=== PATIENT | female | born 1945 ===

== ENCOUNTER 2017-06-25 14:36 | Inpatient (IN) | payer MEDICAID, OTHER ==
--- NOTE | 2017-06-25 15:07 | ED PDOC ---
HPI: Psych/Substance Abuse Time Seen by Provider: 06/25/17 14:50 Chief Complaint (Nursing): Psychiatric Evaluation Chief Complaint (Provider): Depressed History Per: Patient History/Exam Limitations: no limitations Onset/Duration Of Symptoms: Days (yesterday) Current Symptoms Are (Timing): Still Present Additional Complaint(s): Pt. with depression and thoughts of hurting self. Did not do anything to hurt self. Did not take any meds or drugs. No abd pain, dysuria, weakness, headaches, dizziness. No fever. No back pain. Seen at [facility] for same and dx with uti and given meds. Past Medical History Reviewed: Nursing Documentation, Vital Signs Vital Signs: Last Vital Signs Temp 97.0 F L 06/25/17 14:38 Pulse 104 H 06/25/17 14:38 Resp 26 H 06/25/17 14:38 BP 128/71 06/25/17 14:38 Pulse Ox 99 06/25/17 14:38 - Medical History PMH: Depression, HTN - Surgical History Surgical History: No Surg Hx - Family History Family History: States: Unknown Family Hx - Living Arrangements Living Arrangements: With Family - Social History Current smoker - smoking cessation education provided: No Alcohol: None Drugs: Denies - Allergies Allergies/Adverse Reactions: Allergies Allergy/AdvReac Type Severity Reaction Status Date / Time No Known Allergies Allergy Verified 06/25/17 14:38 Review of Systems ROS Statement: Except As Marked, All Systems Reviewed And Found Negative Psych: Positive for: Depression, Suicidal ideation Physical Exam - Reviewed Nursing Documentation Reviewed: Yes Vital Signs Reviewed: Yes - Physical Exam Appears: Positive for: Non-toxic, No Acute Distress Head Exam: Positive for: ATRAUMATIC, NORMAL INSPECTION, NORMOCEPHALIC Skin: Positive for: Normal Color, Warm, DRY Eye Exam: Positive for: EOMI, Normal appearance, PERRL ENT: Positive for: Normal ENT Inspection Neck: Positive for: Normal, Painless ROM Cardiovascular/Chest: Positive for: Regular Rate, Rhythm Respiratory: Positive for: CNT, Normal Breath Sounds Gastrointestinal/Abdominal: Positive for: Normal Exam, Bowel Sounds, Soft. Negative for: Tenderness Back: Positive for: Normal Inspection. Negative for: L CVA Tenderness, R CVA Tenderness Extremity: Positive for: Normal ROM. 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 Negative for: Motor/Sensory Deficits - Laboratory Results Result Diagrams: 06/25/17 17:54 06/25/17 17:54 Interpretation Of Abn Labs: 5.5 k - ECG O2 Sat by Pulse Oximetry: 99 Pulse Ox Interpretation: Normal - Radiology X-Ray: Read By Radiologist X-Ray Interpretation: No Acute Disease - Progress ED Course And Treament: 1654: Crisis seeing pt. Wants labs for possible admit. 1856: Dr. Carolina to fu on psych, urine, uds, alcohol, ekg. Disposition - Clinical Impression Clinical Impression: Hyperkalemia, Depressed - Patient ED Disposition Is Patient to be Admitted: Transfer of Care - Disposition Disposition Time: 18:56 Condition: FAIR Patient Signed Over To: Elias Carolina
--- NOTE | 2017-06-25 17:25 | RAD ---
HISTORY: dyspnea COMPARISON: No prior. FINDINGS: LUNGS: No active pulmonary disease. PLEURA: No significant pleural effusion identified, no pneumothorax apparent. CARDIOVASCULAR: Heart size normal. Central pulmonary vasculature borderline increased. Overall interstitial lung markings also borderline increased. Chronicity of these findings not known. OSSEOUS STRUCTURES: Thoracic spondylosis. VISUALIZED UPPER ABDOMEN: Normal. OTHER FINDINGS: None. IMPRESSION: No consolidation. Borderline prominent bronchovascular and interstitial lung markings as detailed above-of unknown chronicity. Normal heart size
[2017-06-25 17:57] LABS: BASO # 0.1 K/uL (0.0-0.2); EOS # 0.1 K/uL (0.0-0.7); EOS % 1.4 % (0.0-4.0); HEMOGLOBIN 15.8 g/dL (12.0-16.0); LYMPH # 2.3 K/uL (1.0-4.3); MEAN CORPUSCULAR HEMOGLOBIN 32.8 pg (27.0-31.0); MEAN CORPUSCULAR HGB CONC 33.8 g/dL (33.0-37.0); MEAN PLATELET VOLUME 7.7 fl (7.2-11.7); MONO # 0.8 K/uL (0.0-0.8); MONO % 10.9 % (0.0-10.0); NEUT # 3.8 K/uL (1.8-7.0); NEUT % 54.7 % (50.0-75.0); RBC 4.81 Mil/uL (3.80-5.20); RED CELL DISTRIBUTION WIDTH 13.2 % (11.5-14.5)
[2017-06-25 18:21] LABS: ALBUMIN 4.3 g/dL (3.5-5.0); ALT/SGPT 53 U/L (9-52); AST/SGOT 53 U/L (14-36); BLOOD UREA NITROGEN 24 mg/dl (7-17); CALCIUM 10.1 mg/dL (8.4-10.2); GFR AFRICAN-AMERICAN > 60; GFR NON-AFRICAN AMERICAN 55
[2017-06-25] MEDS ORDERED: Sod Polystyrene Sulf 15 gm/60 ml Susp PO STA (18:54)
[2017-06-25] MEDS ORDERED: Albuterol 0.083% Inhal Sol (2.5 mg/3 mL) UD INH STA (18:54)
--- NOTE | 2017-06-25 19:23 | ED PDOC ---
- Laboratory Results Result Diagrams: 06/25/17 17:54 06/25/17 17:54 - ECG O2 Sat by Pulse Oximetry: 99 (RA) Pulse Ox Interpretation: Normal Medical Decision Making Medical Decision Making: Time: 19:00 Patient signed out to me by Dr. Medina pending labs and evaluation. Time: 22:15 Labs reviewed and urine found significant for persistent UTI. Patient is medically stable for psychiatric admission. Urine result communicated to crisis workers who will inform psychiatrist. Time: 01:30 Crisis reevaluated and patient is stable for voluntary admission. Diagnosed with depression. Scribe Attestation: Documented by Bret Desai and Alcon Sanchez, acting as a scribe for Elias Carolina MD. Provider Scribe Attestation: All medical record entries made by the Scribe were at my direction and personally dictated by me. I have reviewed the chart and agree that the record accurately reflects my personal performance of the history, physical exam, medical decision making, and the department course for this patient. I have also personally directed, reviewed, and agree with the discharge instructions and disposition. Disposition - Clinical Impression Clinical Impression: Hyperkalemia, Depressed - POA Present On Arrival: None - Disposition Disposition: Admitted as In-Patient Disposition Time: 22:15 Condition: FAIR
[2017-06-25 22:04] LABS: BARBITURATES, UR NEGATIVE (NEGATIVE); BENZODIAZEPINES, UR NEGATIVE (NEGATIVE); OPIATES, UR NEGATIVE (NEGATIVE); PHENCYCLIDINE, UR NEGATIVE (NEGATIVE)
[2017-06-25] MEDS ORDERED: Bismuth Subsalicylate 262 mg/15 ml Sus (240 ml) PO PRN (23:46)
[2017-06-25] MEDS ORDERED: Alum-Mag Hydrox-Simethicone Susp (30 mL) PO PRN (23:46)
[2017-06-25] MEDS ORDERED: Magnesium Hydroxide Susp 30 ml UD PO PRN (23:46)
--- NOTE | 2017-06-25 23:53 | PCM.BM ---
<Felicitas Rolon - Last Filed: 06/25/17 23:51> Treatment Plan Problems - Problems identified on initial assessmt Hopelessness/Helplessness Date Initiated: 06/25/17 Time Initiated: 23:51 Assessment reference: NA Status: Active Treatment assets and liabiliti Patient Assests: cooperative, good support system, negotiates basic needs Patient Liabilities: relationship conflicts - Milieu Protocol Maintain good personal hygiene: daily Encourage regular showers, daily Remind patient to perform daily oral care, every shift Assist patient to perform ADL's Conduct patient checks and document Observation sheet: Q15 minutes Maintain personal safety: every shift Educate patient to report safety concerns to staff, every shift Monitor environment for contraband/sharps Medication safety: Monitor for expected outcome, potential side effects: every shift, Assess barriers to learning: every shift, Assess readiness for medication education: every shift <Awilda Rodriguez - Last Filed: 06/26/17 13:22> - Diagnosis (1) Dementia with behavioral disturbance Status: Acute Interventions: Medication management, Individual and group therapy, Psychoeducation 06/26/17 12:26 (2) Depressive disorder Status: Acute Interventions: Medication management, Individual and group therapy, Psychoeducation 06/26/17 13:22 <Ophelia Pyle M - Last Filed: 06/26/17 15:07> Family Contact Family contact: Patient agrees to contact, Telephone contact initiated by staff , Family contacted unit to give information Family contact name: Jennifer - daughter Family contacted how many times per week?: 2 Family contact comment: Please see progress note dates 06/26/2017 from - Goals for Treatment Patient goals for treatment: Pt to be encouraged to attend activity and clinical groups 3-5x per week to identify at least 2 contributing factors to increased agitation, irritability, and aggression. Psycho-education to be provided to patient/family regarding benefits of medications and treatment adherence. Pt to be encouraged to participate in group milieu to develop effective coping skills to reduce aggression and reduce psychiatric hospitalizations. Coordinate discharge resource needs by providing referral for psychiatric treatment follow up in the community. Discharge/Continuing Care - Education Needs Education Needs: Family Medication, Family Diagnosis/Disease Process, Family Coping Skills, Family Placement options, Family Community resources, Family Activities of Daily Living, Family Uses of Medical Equipment, Family Health Practices/Safety, Family Personal Hygiene/Grooming, Family Aftercare Safety Plan , Patient Medication, Patient Diagnosis/Disease Process, Patient Coping Skills, Patient Placement options, Patient Community resources, Patient Activities of Daily Living, Patient Uses of Medical Equipment, Patient Health Practices/Safety , Patient Personal Hygiene/Grooming, Patient Aftercare Safety Plan - Discharge Discharge Criteria: Tolerates medication w/o severe side effects, Free of paranoid thoughts, Free of agitation, Normal sleep pattern, Ability to care for self, Reduction of target symptoms Discharge to:: Home, With Family - Additional Comments 06/26/17 15:04 Pt seen and discussed in team meeting. Reason for hospitalization reviewed and discussed. Pt unable to state reason for hospitalization at this time. Pt recalls having a "mental breakdown" but cannot state why or what caused it. Pt' s memory is poor and disoriented. When asked when she last visited [facility] pt cannot recall. Pt is a poor historian. Pt's medical and social issues reviewed. Pt's treatment plan reviewed. Treatment deo also reviewed with daughter following morning meeting with pt. SW will continue to follow case. - Treatment Team Participation Discussed with Family/SO: Yes Was Patient/Family/SO present at Treatment Team Meeting: Yes
[2017-06-26 02:00] VITALS: O2SAT 99
[2017-06-26 07:51] LABS: ALBUMIN 3.6 g/dL (3.5-5.0); ALT/SGPT 44 U/L (9-52); AST/SGOT 29 U/L (14-36); BLOOD UREA NITROGEN 22 mg/dl (7-17); CALCIUM 9.1 mg/dL (8.4-10.2); GFR AFRICAN-AMERICAN > 60; GFR NON-AFRICAN AMERICAN 55; HDL CHOLESTEROL 31 MG/DL (30-70)
[2017-06-26 07:55] LABS: IRON 72 ug/dL (37-170)
[2017-06-26 08:02] LABS: LDL CHOLESTEROL 93 mg/dL (0-129)
[2017-06-26 08:06] LABS: % IRON SATURATION 31 % (20-55); TOTAL IRON BINDING CAPACITY 237 ug/dL (250-450)
[2017-06-26 08:12] LABS: T4 10.4 ug/dl (5.5-11.0)
[2017-06-26] MEDS ORDERED: Pneumococcal 23-Valent Vaccine IM ONE (09:00)
[2017-06-26] MEDS ORDERED: Influenza Vaccine 18yr & older 0.5 ML/45 MCG SYR IM ONE (09:00)
[2017-06-26 11:52] LABS: RENAL EPITHELIAL 2 /hpf (0-3); SQUAMOUS EPITHIAL 7 /hpf (0-5); URINE BILIRUBIN NEGATIVE (NEGATIVE); URINE BLOOD SMALL (NEGATIVE); URINE CLARITY CLOUDY (Clear); URINE COLOR YELLOW (YELLOW); URINE GLUCOSE (UA) NEG (Normal); URINE LEUKOCYTE ESTERASE LARGE Leu/uL (Negative); URINE PROTEIN NEGATIVE (NEGATIVE); URINE UROBILINOGEN 0.2-1.0 mg/dL (0.2-1.0); WBC CLUMPS OCC /hpf
--- NOTE | 2017-06-26 12:18 | CP.PCM.CON ---
History of Present Illness - History of Present Illness History of Present Illness: This is a 71 year old female with past medical history of depression and hypertension for which she takes Cozaar and HCTZ at home, who presnted to the ED complaining of worsening depression and thoughts of hurting herself. She was subsequently admitted to the psychiatric unit. She currently has no complaints. Of note she was recently seen at [facility] for depression and there was found to have a UTI and was discharged with cephalexin. We will repeat U/A here and continue her antibiotics. Patient denies chest pain, shortness of breath, fevers, chills, nausea, vomiting, diarrhea, headache. All of the patient 's questions were answered at the bedside. Review of Systems - Review of Systems Review of Systems: A 12 point ROS was conducted and found to be negative other than what was mentioned in the HPI. Past Patient History - Infectious Disease Hx of Infectious Diseases: None - Past Social History Alcohol: None Drugs: Denies - CARDIAC Hx Cardiac Disorders: No - PULMONARY Hx Tuberculosis: No - NEUROLOGICAL HX Cerebrovascular Accident: No Hx Seizures: No - HEMATOLOGICAL/ONCOLOGICAL Hx Cancer: No Hx Human Immunodeficiency Virus (HIV): No - MUSCULOSKELETAL/RHEUMATOLOGICAL Hx Falls: No - GENITOURINARY/GYNECOLOGICAL Hx Sexually Transmitted Disorders: No - PSYCHIATRIC Hx Depression: Yes Hx Substance Use: No Meds Allergies/Adverse Reactions: Allergies Allergy/AdvReac Type Severity Reaction Status Date / Time No Known Allergies Allergy Verified 06/25/17 14:38 - Medications Medications: Current Medications Acetaminophen (Tylenol 325mg Tab) 650 mg PO Q4 PRN PRN Reason: Pain, moderate (4-7) Al Hydrox/Mg Hydrox/Simethicone (Maalox Plus 30 Ml) 30 ml PO Q4 PRN PRN Reason: Dyspepsia Bismuth Subsalicylate (Pepto-Bismol) 524 mg PO Q4 PRN PRN Reason: Diarrhea Cephalexin Monohydrate (Keflex) 500 mg PO QID CARL PRN Reason: Protocol Lorazepam (Ativan) 0.5 mg PO HS PRN PRN Reason: Insomnia Stop: 07/09/17 23:47 Lorazepam (Ativan) 0.5 mg PO Q6 PRN PRN Reason: Anixety/Agitation Stop: 07/09/17 23:47 Losartan Potassium (Cozaar) 50 mg PO BID [facility] Last Admin: 03/09/18 08:58 Dose: Not Given Magnesium Hydroxide (Milk Of Magnesia) 30 ml PO HS PRN PRN Reason: Constipation Mirtazapine (Remeron) 7.5 mg PO HS [facility] Last Admin: 06/26/17 01:39 Dose: 7.5 mg Physical Exam - Additional Findings Additional findings: Physical exam: Constitutional- cooperative, awake, alert Head- NCAT, PERRL Eye- PERRL, EOMI. mild right ptosis ENT- normal exam, MMM. Neck- normal inspection, supple, no JVD Respiratory- CTAB, no wheezes rales rhonchi Cardiovascular- RRR, +S1, +S2 no MRG GI/Abdominal- normal bowel sounds, soft, no mass, no hsm Skin- warm, dry Extremities Exam- normal capillary refill, normal inspection Neurological Exam- alert, awake, oriented Psych- normal mood, normal affect Results - Vital Signs Recent Vital Signs: Last Vital Signs Temp 97.3 F L 06/26/17 06:00 Pulse 73 06/26/17 08:58 Resp 20 06/26/17 06:00 BP 111/60 06/26/17 08:58 Pulse Ox 99 06/26/17 02:22 - Labs Result Diagrams: 06/25/17 17:54 06/26/17 07:24 Labs: Laboratory Results - last 24 hr 06/25/17 06/25/17 06/25/17 17:54 17:54 21:32 WBC 7.0 RBC 4.81 Hgb 15.8 Hct 46.6 MCV 97.0 MCH 32.8 H MCHC 33.8 RDW 13.2 Plt Count 245 MPV 7.7 Neut % (Auto) 54.7 Lymph % (Auto) 32.0 Rawlins % (Auto) 10.9 H Eos % (Auto) 1.4 Baso % (Auto) 1.0 Neut # (Auto) 3.8 Lymph # (Auto) 2.3 Rawlins # (Auto) 0.8 Eos # (Auto) 0.1 Baso # (Auto) 0.1 Sodium 147 Potassium 5.5 H Chloride 103 Carbon Dioxide 26 Anion Gap 24 H BUN 24 H Creatinine 1.0 Est GFR ( Amer) > 60 Est GFR (Non-Af Amer) 55 Random Glucose 111 H Hemoglobin A1c Calcium 10.1 Iron TIBC % Saturation Ferritin Total Bilirubin 0.9 AST 53 H ALT 53 H Alkaline Phosphatase 114 Troponin I 0.0210 Total Protein 8.4 H Albumin 4.3 Globulin 4.1 H Albumin/Globulin Ratio 1.0 Triglycerides Cholesterol LDL Cholesterol Direct HDL Cholesterol Vitamin B12 Free T4 Thyroxine (T4) TSH 3rd Generation Urine Color Urine Clarity Urine pH Ur Specific Corona Urine Protein Urine Glucose (UA) Urine Ketones Urine Blood Urine Nitrate Urine Bilirubin Urine Urobilinogen Ur Leukocyte Esterase Urine RBC (Auto) Urine WBC Clumps (Auto) Urine Microscopic WBC Ur Squamous Epith Cells Ur Renal Epithelial Cell Urine Opiates Screen Negative Urine Methadone Screen Negative Ur Barbiturates Screen Negative Ur Phencyclidine Scrn Negative Ur Amphetamines Screen Negative U Benzodiazepines Scrn Negative U Oth Cocaine Metabols Negative U Cannabinoids Screen Negative Alcohol, Quantitative < 10 06/26/17 06/26/17 06/26/17 07:24 07:24 07:24 WBC RBC Hgb Hct MCV MCH MCHC RDW Plt Count MPV Neut % (Auto) Lymph % (Auto) Rawlins % (Auto) Eos % (Auto) Baso % (Auto) Neut # (Auto) Lymph # (Auto) Rawlins # (Auto) Eos # (Auto) Baso # (Auto) Sodium 144 Potassium 3.6 Chloride 104 Carbon Dioxide 28 Anion Gap 16 BUN 22 H Creatinine 1.0 Est GFR ( Amer) > 60 Est GFR (Non-Af Amer) 55 Random Glucose 101 Hemoglobin A1c 6.5 Calcium 9.1 Iron 72 TIBC 237 L % Saturation 31 Ferritin 261.0 Total Bilirubin 0.9 AST 29 ALT 44 Alkaline Phosphatase 93 Troponin I Total Protein 7.2 Albumin 3.6 Globulin 3.6 Albumin/Globulin Ratio 1.0 Triglycerides 112 Cholesterol 155 LDL Cholesterol Direct 93 HDL Cholesterol 31 Vitamin B12 862 Free T4 Thyroxine (T4) 10.4 TSH 3rd Generation 1.30 Urine Color Urine Clarity Urine pH Ur Specific Corona Urine Protein Urine Glucose (UA) Urine Ketones Urine Blood Urine Nitrate Urine Bilirubin Urine Urobilinogen Ur Leukocyte Esterase Urine RBC (Auto) Urine WBC Clumps (Auto) Urine Microscopic WBC Ur Squamous Epith Cells Ur Renal Epithelial Cell Urine Opiates Screen Urine Methadone Screen Ur Barbiturates Screen Ur Phencyclidine Scrn Ur Amphetamines Screen U Benzodiazepines Scrn U Oth Cocaine Metabols U Cannabinoids Screen Alcohol, Quantitative 06/26/17 06/26/17 07:24 10:40 WBC RBC Hgb Hct MCV MCH MCHC RDW Plt Count MPV Neut % (Auto) Lymph % (Auto) Rawlins % (Auto) Eos % (Auto) Baso % (Auto) Neut # (Auto) Lymph # (Auto) Rawlins # (Auto) Eos # (Auto) Baso # (Auto) Sodium Potassium Chloride Carbon Dioxide Anion Gap BUN Creatinine Est GFR ( Amer) Est GFR (Non-Af Amer) Random Glucose Hemoglobin A1c Calcium Iron TIBC % Saturation Ferritin Total Bilirubin AST ALT Alkaline Phosphatase Troponin I Total Protein Albumin Globulin Albumin/Globulin Ratio Triglycerides Cholesterol LDL Cholesterol Direct HDL Cholesterol Vitamin B12 Free T4 2.04 Thyroxine (T4) TSH 3rd Generation Urine Color Yellow Urine Clarity Cloudy Urine pH 5.0 Ur Specific Corona 1.024 Urine Protein Negative Urine Glucose (UA) Neg Urine Ketones Negative Urine Blood Small Urine Nitrate Negative Urine Bilirubin Negative Urine Urobilinogen 0.2-1.0 Ur Leukocyte Esterase Large Urine RBC (Auto) 6 H Urine WBC Clumps (Auto) Occ H Urine Microscopic WBC 106 H Ur Squamous Epith Cells 7 H Ur Renal Epithelial Cell 2 Urine Opiates Screen Urine Methadone Screen Ur Barbiturates Screen Ur Phencyclidine Scrn Ur Amphetamines Screen U Benzodiazepines Scrn U Oth Cocaine Metabols U Cannabinoids Screen Alcohol, Quantitative Assessment & Plan - Assessment and Plan (Free Text) Plan: ASSESSMENT/PLAN 71 yo female admitted with depression and suicidal ideation to the inpatient geropsychiatric unit 1) UTI found at [facility] - Continue Keflex regimen - Obtain urinalysis and UCX if positive - no c/o dysuria at this time 2) Hyperkalemia- resolved; likely due to her HCTZ - Was given Kayexelate and Albuterol in ED - K now 3.6 3) Essential hypertension - Controlled - restart Cozaar - Hold HCTZ as she is normotensive here and this likely caused her hyperkalemia 4) Depression with suicidal ideation - As per psychiatry
[2017-06-26 12:55] LABS: FOLATE 10.5 ng/mL
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
--- NOTE | 2017-06-26 13:22 | CARD ---
APPROVED REPORT EKG Measurement Heart [id number] <Conclusion> Normal sinus rhythm Normal ECG
--- NOTE | 2017-06-26 16:34 | CT ---
PROCEDURE: CT HEAD WITHOUT CONTRAST. HISTORY: New onset memory loss COMPARISON: No prior study available for comparison TECHNIQUE: Axial computed tomography images were obtained through the head/brain without intravenous contrast. Radiation dose: Total exam DLP = 813.1 mGy-cm. This CT exam was performed using one or more of the following dose reduction techniques: Automated exposure control, adjustment of the mA and/or kV according to patient size, and/or use of iterative reconstruction technique. FINDINGS: HEMORRHAGE: No acute parenchymal, subarachnoid or extra-axial hemorrhage. . BRAIN: Minor slightly diffuse/confluent chronic periventricular white matter ischemic changes are felt to be present. Few small ill-defined areas of low attenuation seen within the deep and subcortical white matter both cerebral hemispheres likely representing chronic sequela of small vessel disease. There also appears to be a few tiny chronic appearing lacunar type infarcts both basal nuclei. Note that the possibility of a small hyperacute infarct cannot be excluded on this study and if there is any concern, consider follow-up MRI. Mild generalized volume loss. Minor vascular calcifications both carotid siphons. VENTRICLES: No obstructive hydrocephalus. CALVARIUM: There are no acute calvarial fractures PARANASAL SINUSES: Visualized paranasal sinuses are clear. MASTOID AIR CELLS: Unremarkable as visualized. No inflammatory changes. OTHER FINDINGS: Visualized orbits and contents unremarkable. IMPRESSION: No evidence of acute intracranial hemorrhage. Minor slightly diffuse/confluent chronic periventricular white matter ischemic changes. There are a few chronic appearing ischemic changes scattered about the deep white matter in both basal nuclei. . Mild generalized Volume loss.
[2017-06-26] MEDS: Divalproex 125 mg Sprinkle Capsule PO SCH (17:00)
[2017-06-26 17:03] LABS: RAPID PLASMA REAGIN REACTIVE (NONREACTIVE)
--- NOTE | 2017-06-27 07:16 | PCM.PYCHPN ---
Psychiatric Progress Note - Psychiatric Progress Note Patient seen today, length of contact: Patient evaluated, case discussed with team, chart reviewed Patient Chief Complaint: "I'm feeling guilty." Problems Identified/Issues Discussed: Patient has been crying and is labile. She did not want to discuss why she was crying, stating "I can't talk about it." This morning she states she does not know where she is or why she is in the hospital. She seems to have poor insight into her mood lability. Medication Change: No Medical Record Reviewed: Yes Consults ordered or reviewed: Medicine consult Mental Status Examination - Cognitive Function Orientation: Person Memory: Impaired Attention: Poor Concentration: Poor Fund of Knowledge: Poor - Mood Mood: Depressed - Affect Affect: Constricted - Formal Thought Process Formal Thought Process: Loosening of associations Psychotic Thoughts and Behaviors: Denies AH/VH/paranoia/delusions - Suicidal Ideation Suicidal Ideation: No - Homicidal Ideation Homicidal Ideation: No Goal/Treatment Plan - Goal/Treatment Plan Need for Continued Stay: Remain at risks for inpatient hospitalization, Severe depression anxiety, Severe functional impairment Progress Toward Problem(s) and Goals/Treatment Plan: Dementia w/ Behavior Disturbance; Depressive Disorder NOS -Individual and group therapy -Continue Depakote 125 mg PO BID -Continue Remeron 7.5 mg PO HS -Continue Aricept 5 mg PO HS -Medicine consult; patient currently being treated for a UTI -Obtain collateral history -Disposition planning Estimated Date of D/C: 07/03/17
[2017-06-27] MEDS: Divalproex 125 mg Sprinkle Capsule PO SCH ×2 (08:48→16:34)
[2017-06-28] MEDS: Divalproex 125 mg Sprinkle Capsule PO SCH ×2 (09:14→17:28)
--- NOTE | 2017-06-28 11:25 | PCM.PYCHPN ---
Psychiatric Progress Note - Psychiatric Progress Note Patient seen today, length of contact: Patient evaluated, case discussed with team, chart reviewed Patient Chief Complaint: "I'm feeling guilty." Problems Identified/Issues Discussed: Patient continues to be labile, depressed, crying spontanously, but is unable to state what is making her upset. A + O x self, [facility], 2018. She seems to have poor insight into her mood lability. No adverse effects to medications reported. Medication Change: Yes (Increase Depakote to 125 mg PO AM/ 250 mg PO Daily@1700) Medical Record Reviewed: Yes Consults ordered or reviewed: Medicine consult Mental Status Examination - Cognitive Function Orientation: Person, Place Memory: Impaired Attention: Poor Concentration: Poor Fund of Knowledge: Poor Decription of patient's judgement and insights: Poor I/J - Mood Mood: Depressed - Affect Affect: Constricted - Formal Thought Process Formal Thought Process: Loosening of associations Psychotic Thoughts and Behaviors: Denies AH/VH/paranoia/delusions - Suicidal Ideation Suicidal Ideation: No - Homicidal Ideation Homicidal Ideation: No Goal/Treatment Plan - Goal/Treatment Plan Need for Continued Stay: Remain at risks for inpatient hospitalization, Severe depression anxiety, Severe functional impairment Progress Toward Problem(s) and Goals/Treatment Plan: Dementia w/ Behavior Disturbance; Depressive Disorder NOS -Individual and group therapy -Increase Depakote to 125 mg PO AM/ 250 mg PO Daily@1700 -Continue Remeron 7.5 mg PO HS -Continue Aricept 5 mg PO HS -Medicine consult; patient currently being treated for a UTI -Obtain collateral history -Disposition planning Estimated Date of D/C: 07/03/17
[2017-06-29] MEDS: Divalproex 125 mg Sprinkle Capsule PO SCH (08:15)
--- NOTE | 2017-06-29 08:45 | PCM.PYCHPN ---
Psychiatric Progress Note - Psychiatric Progress Note Patient seen today, length of contact: Patient evaluated, case discussed with team, chart reviewed Patient Chief Complaint: "I'm sad." Problems Identified/Issues Discussed: Patient continues to be labile, depressed, tearful, and crying spontanously. She does not give a specific reason why she is crying or why she feels depressed. She continues to have poor insight into her mood lability. NO AH/ VH/SI/HI. No adverse effects to medications reported. Medication Change: Yes (Increase Depakote to 250 mg PO BID; Increase Remeron to 15 mg PO HS) Medical Record Reviewed: Yes Consults ordered or reviewed: Medicine consult Mental Status Examination - Cognitive Function Orientation: Person, Place Memory: Impaired Attention: Poor Concentration: Poor Fund of Knowledge: Poor Decription of patient's judgement and insights: Poor I/J - Mood Mood: Depressed - Affect Affect: Constricted - Formal Thought Process Formal Thought Process: Loosening of associations Psychotic Thoughts and Behaviors: Denies AH/VH/paranoia/delusions - Suicidal Ideation Suicidal Ideation: No - Homicidal Ideation Homicidal Ideation: No Goal/Treatment Plan - Goal/Treatment Plan Need for Continued Stay: Remain at risks for inpatient hospitalization, Severe depression anxiety, Severe functional impairment Progress Toward Problem(s) and Goals/Treatment Plan: Dementia w/ Behavior Disturbance; Depressive Disorder NOS -Individual and group therapy -Increase Depakote to 250 mg PO BID -Increase Remeron to 15 mg PO HS -Continue Aricept 5 mg PO HS -Medicine consult; patient currently being treated for a UTI -Disposition planning Estimated Date of D/C: 07/03/17
[2017-06-29] MEDS ORDERED: Divalproex 250 mg DR(BID formulation) PO SCH (17:00)
--- NOTE | 2017-06-30 10:00 | PCM.PYCHPN ---
Psychiatric Progress Note - Psychiatric Progress Note Patient seen today, length of contact: Patient evaluated, case discussed with team, chart reviewed Patient Chief Complaint: "I'm sad." Problems Identified/Issues Discussed: Manufacturing Process Technician spoke with patient's daughters, who believe the patient is delusional due to her stating various things that are not true. At this time it is unclear if she is acutely psychotic vs. worsening dementia/ neurocognitive impairment. We discussed stopped the Depakote and starting treatment with Risperdal. Patient continues to be labile, tearful and not clearly stating what is making her upset. She is difficult to engage in interview because just cries instead of answering questions. She continues to have poor insight into her mood lability. NO AH/VH/SI/HI. No adverse effects to medications reported. Medication Change: Yes (Stop depakote, Start Risperdal) Medical Record Reviewed: Yes Consults ordered or reviewed: Medicine consult Mental Status Examination - Cognitive Function Orientation: Person, Place Memory: Impaired Attention: Poor Concentration: Poor Fund of Knowledge: Poor Decription of patient's judgement and insights: Poor I/J - Mood Mood: Depressed - Affect Affect: Constricted - Formal Thought Process Formal Thought Process: Loosening of associations Psychotic Thoughts and Behaviors: Denies AH/VH/paranoia/delusions - Suicidal Ideation Suicidal Ideation: No - Homicidal Ideation Homicidal Ideation: No Goal/Treatment Plan - Goal/Treatment Plan Need for Continued Stay: Remain at risks for inpatient hospitalization, Severe depression anxiety, Severe functional impairment Progress Toward Problem(s) and Goals/Treatment Plan: Dementia w/ Behavior Disturbance; Depressive Disorder NOS; r/o Psychosis NOS -Individual and group therapy -Stop Depakote; start Risperdal -Continue Remeron 15 mg PO HS -Continue Aricept 5 mg PO HS -Medicine consult; patient treated for a UTI -Psychology consult to evaluate neurocognitive function -Disposition planning Estimated Date of D/C: 07/03/17
[2017-06-30 15:23] LABS: SQUAMOUS EPITHIAL 2 /hpf (0-5); URINE BACTERIA OCC (<OCC); URINE BILIRUBIN NEGATIVE (NEGATIVE); URINE BLOOD NEGATIVE (NEGATIVE); URINE CLARITY SLIGHTY-CLOUDY (Clear); URINE COLOR YELLOW (YELLOW); URINE GLUCOSE (UA) 50 mg/dL (Normal); URINE LEUKOCYTE ESTERASE LARGE Leu/uL (Negative); URINE PROTEIN NEGATIVE (NEGATIVE); URINE UROBILINOGEN 0.2-1.0 mg/dL (0.2-1.0)
--- NOTE | 2017-07-01 17:02 | PCM.PYCHPN ---
Psychiatric Progress Note - Psychiatric Progress Note Patient seen today, length of contact: Patient evaluated, case discussed with team, chart reviewed Patient Chief Complaint: seen seated in social area seated when spoken to speaks wallisian cries inappropriately, staff report pt is labile at times, but is redirectal pt's urine culture +gram pos evelio, pt is being followed by hospitalist received antibiotics Problems Identified/Issues Discussed: alteration in cognition alteration in self care Medical Problems: uti gram neg rods [id number] rods pt being followed by hospitalist Diagnostic Results: per psychiatry per medicine per nursing per social work case manager per recreational therapy Medication Change: No Medical Record Reviewed: Yes Consults ordered or reviewed: pt being followed by hospitalist lab tests reviewed including urine c/s Mental Status Examination - Cognitive Function Orientation: Person, Place Memory: Impaired Attention: Poor Concentration: Poor Fund of Knowledge: Poor Decription of patient's judgement and insights: impaired - Mood Mood: Depressed - Affect Affect: Constricted - Speech Speech: Soft Additional comments: tearful at times - Formal Thought Process Formal Thought Process: Paranoia, Loosening of associations - Suicidal Ideation Suicidal Ideation: No - Homicidal Ideation Homicidal Ideation: No Goal/Treatment Plan - Goal/Treatment Plan Need for Continued Stay: Remain at risks for inpatient hospitalization, Severe depression anxiety, Severe functional impairment Progress Toward Problem(s) and Goals/Treatment Plan: inpt milieu clinical visualization/vital signs per clinical status and per protocol adjust meds per status Increase risperdal to 1mg po hs-falls precautions staff to notify hospitalist preliminary report gram neg rods between 50 000 to 100 000 wallisian spoken prn discharge planning in progress Estimated Date of D/C: 07/03/17 - Smoking Cessation Smoking Cessation Initiated: No Reason for not providing: pt defers
--- NOTE | 2017-07-02 15:57 | PCM.PYCHPN ---
Psychiatric Progress Note - Psychiatric Progress Note Patient seen today, length of contact: Patient evaluated, case discussed with team, chart reviewed Patient Chief Complaint: staff report pt is calmer, less tearful, seen more visibly in unit-taking per plan. pt reports doing better slept better Problems Identified/Issues Discussed: alteration in cognition alteration in self care Medical Problems: uti gram neg rods [id number] rods pt being followed by hospitalist jailene has been started Diagnostic Results: per psychiatry per medicine per nursing per healthcare social worker per recreational therapy DSM 5 Symptoms Update: alteration in cognition Medication Change: No Medical Record Reviewed: Yes Consults ordered or reviewed: pt being followed by hospitalist Mental Status Examination - Cognitive Function Orientation: Person, Place Memory: Impaired Attention: Poor Concentration: Poor Fund of Knowledge: Poor Decription of patient's judgement and insights: impaired - Mood Mood: Depressed - Affect Affect: Constricted - Speech Speech: Soft - Formal Thought Process Formal Thought Process: Paranoia, Loosening of associations - Suicidal Ideation Suicidal Ideation: No - Homicidal Ideation Homicidal Ideation: No Goal/Treatment Plan - Goal/Treatment Plan Need for Continued Stay: Remain at risks for inpatient hospitalization, Severe depression anxiety, Severe functional impairment Progress Toward Problem(s) and Goals/Treatment Plan: inpt milieu clinical visualization/vital signs per clinical status and per protocol adjust meds per status Increase risperdal to 1mg po hs-falls precautions pt has been started by jailene by hospitalistspanish spoken prn prn access to hebrew speaking staff discharge planning in progress Estimated Date of D/C: 07/03/17 - Smoking Cessation Smoking Cessation Initiated: No Reason for not providing: pt defers
--- NOTE | 2017-07-03 10:53 | CP.PCM.CON ---
History of Present Illness - History of Present Illness History of Present Illness: Pt is a 71 year old female admitted to the geropsych unit and referred to the medical technical writer for evaluation. On the DRS, pt scored an overall score of 104. Pt scored in the Deficient Range on Construction, Conceptualization, Initation and Memory tasks. Pt scored within normal limits on Attention tasks. Overall 104 Attention 33 Construction 3 Conceptualization 29 Initiation 24 Memory 15 Assistance reccomended for the home. Deficits evident on testing. Past Patient History - Infectious Disease Hx of Infectious Diseases: None - Past Social History Alcohol: None Drugs: Denies - CARDIAC Hx Cardiac Disorders: No - PULMONARY Hx Tuberculosis: No - NEUROLOGICAL HX Cerebrovascular Accident: No Hx Seizures: No - HEMATOLOGICAL/ONCOLOGICAL Hx Cancer: No Hx Human Immunodeficiency Virus (HIV): No - MUSCULOSKELETAL/RHEUMATOLOGICAL Hx Falls: No - GENITOURINARY/GYNECOLOGICAL Hx Sexually Transmitted Disorders: No - PSYCHIATRIC Hx Depression: Yes Hx Substance Use: No Meds Allergies/Adverse Reactions: Allergies Allergy/AdvReac Type Severity Reaction Status Date / Time No Known Allergies Allergy Verified 06/25/17 14:38 - Medications Medications: Current Medications Acetaminophen (Tylenol 325mg Tab) 650 mg PO Q4 PRN PRN Reason: Pain, moderate (4-7) Al Hydrox/Mg Hydrox/Simethicone (Maalox Plus 30 Ml) 30 ml PO Q4 PRN PRN Reason: Dyspepsia Bismuth Subsalicylate (Pepto-Bismol) 524 mg PO Q4 PRN PRN Reason: Diarrhea Ciprofloxacin (Cipro) 500 mg PO Q12 [facility] PRN Reason: Protocol Last Admin: 07/03/17 08:27 Dose: 500 mg Donepezil HCl (Aricept) 5 mg PO HS [facility] Last Admin: 07/02/17 21:01 Dose: 5 mg Lorazepam (Ativan) 0.5 mg PO HS PRN PRN Reason: Insomnia Stop: 07/09/17 23:47 Last Admin: 07/02/17 23:36 Dose: 0.5 mg Lorazepam (Ativan) 0.5 mg PO Q6 PRN PRN Reason: Anixety/Agitation Stop: 07/09/17 23:47 Last Admin: 07/03/17 08:17 Dose: 0.5 mg Losartan Potassium (Cozaar) 50 mg PO BID [facility] Last Admin: 07/03/17 08:28 Dose: 50 mg Magnesium Hydroxide (Milk Of Magnesia) 30 ml PO HS PRN PRN Reason: Constipation Mirtazapine (Remeron) 15 mg PO HS [facility] Last Admin: 07/02/17 21:01 Dose: 15 mg Risperidone (Risperdal Tab) 0.5 mg PO Q12 [facility] Last Admin: 07/03/17 08:28 Dose: 0.5 mg Results - Vital Signs Recent Vital Signs: Last Vital Signs Temp 96.8 F L 07/03/17 05:51 Pulse 69 07/03/17 08:28 Resp 19 07/03/17 05:51 BP 116/69 07/03/17 08:28 Pulse Ox 99 06/26/17 02:22 - Labs Result Diagrams: 06/25/17 17:54 06/26/17 07:24
--- NOTE | 2017-07-03 15:55 | CP.PCM.CON ---
History of Present Illness - History of Present Illness History of Present Illness: Infectious Disease Consultation Note- asked to see this patient at the request of the hospitalist for + RPR HPI- history obtained mostly from the medical chart . Patient is a 71 year old female with depression and HTN who was admitted to [facility] for worsening depression and suicidal ideation. I'm now asked to see the patient because she had positive RPR. of note pt. was also found to have + urine cx and is on abx as per hospitalist for that. currently pt. is smiling and pleasant and seen together with her nurse. she denies any fever or chills, denies any nausea or vomiting, denies any dysurea but states has had UTI in the past, denies any diarrhea. denies any HAMMONDS. asked pt. if she remembers ever having PCN injections snd she denies it. also when asked about syphillis she states she does not know anything about it and never heard this before. She states only has one partner her Review of Systems - Review of Systems Review of Systems: ROS_ denies any fever or chills, denies any HAMMONDS, denies any denies any h/o any STD and does not recall everb getting PCN injection in her past cough or sob, denies any chest pain, denies any abd. pain, denies any dysurea, denies any diarrhea, denies any n/v, denies any recent travel denies any allergy to any meds. Past Patient History - Infectious Disease Hx of Infectious Diseases: None - Past Social History Alcohol: None Drugs: Denies Home Situation {Lives}: With Family - CARDIAC Hx Cardiac Disorders: No - PULMONARY Hx Respiratory Disorders: No - NEUROLOGICAL HX Cerebrovascular Accident: No Hx Seizures: No - RENAL Hx Chronic Kidney Disease: No - ENDOCRINE/METABOLIC Hx Endocrine Disorders: No - HEMATOLOGICAL/ONCOLOGICAL Hx Blood Disorders: No - MUSCULOSKELETAL/RHEUMATOLOGICAL Hx Falls: No - GENITOURINARY/GYNECOLOGICAL Hx Sexually Transmitted Disorders: No - PSYCHIATRIC Hx Depression: Yes Hx Substance Use: No Meds Allergies/Adverse Reactions: Allergies Allergy/AdvReac Type Severity Reaction Status Date / Time No Known Allergies Allergy Verified 06/25/17 14:38 - Medications Medications: Current Medications Acetaminophen (Tylenol 325mg Tab) 650 mg PO Q4 PRN PRN Reason: Pain, moderate (4-7) Al Hydrox/Mg Hydrox/Simethicone (Maalox Plus 30 Ml) 30 ml PO Q4 PRN PRN Reason: Dyspepsia Bismuth Subsalicylate (Pepto-Bismol) 524 mg PO Q4 PRN PRN Reason: Diarrhea Cefdinir (Omnicef) 300 mg PO BID [facility] Donepezil HCl (Aricept) 5 mg PO HS [facility] Last Admin: 07/02/17 21:01 Dose: 5 mg Lorazepam (Ativan) 0.5 mg PO HS PRN PRN Reason: Insomnia Stop: 07/09/17 23:47 Last Admin: 07/02/17 23:36 Dose: 0.5 mg Lorazepam (Ativan) 0.5 mg PO Q6 PRN PRN Reason: Anixety/Agitation Stop: 07/09/17 23:47 Last Admin: 07/03/17 08:17 Dose: 0.5 mg Losartan Potassium (Cozaar) 50 mg PO BID [facility] Last Admin: 07/03/17 08:28 Dose: 50 mg Magnesium Hydroxide (Milk Of Magnesia) 30 ml PO HS PRN PRN Reason: Constipation Mirtazapine (Remeron) 15 mg PO HS [facility] Last Admin: 07/02/17 21:01 Dose: 15 mg Risperidone (Risperdal Tab) 0.5 mg PO Q12 [facility] Last Admin: 07/03/17 08:28 Dose: 0.5 mg Physical Exam - Constitutional Appears: Non-toxic, No Acute Distress - Head Exam Head Exam: ATRAUMATIC - Eye Exam Eye Exam: EOMI, PERRL - ENT Exam ENT Exam: Normal Oropharynx - Neck Exam Neck exam: Positive for: Full Rom - Respiratory Exam Respiratory Exam: Clear to Auscultation Bilateral, NORMAL BREATHING PATTERN - Cardiovascular Exam Cardiovascular Exam: RRR, +S1, +S2 - GI/Abdominal Exam GI & Abdominal Exam: Normal Bowel Sounds, Soft Additional comments: NT, ND - Neurological Exam Neurological exam: Alert, Oriented x3 Results - Vital Signs Recent Vital Signs: Last Vital Signs Temp 98.2 F 07/03/17 15:40 Pulse 97 H 07/03/17 15:40 Resp 20 07/03/17 15:40 BP 109/58 L 07/03/17 15:40 Pulse Ox 99 06/26/17 02:22 - Labs Result Diagrams: 06/25/17 17:54 06/26/17 07:24 Labs: Laboratory Results - last 24 hr 06/26/17 07:24 T.pallidum Ab (FTA-ABS) Reactive Laboratory Results - last 72 hr 06/26/17 07:24 T.pallidum Ab (FTA-ABS) Reactive Microbiology 06/30/17 15:02 Urine,Clean Catch Urine Culture - Final Escherichia Coli 06/27/17 12:40 Urine,Clean Catch Urine Culture - Final No Growth (<1,000 CFU/ML) Assessment & Plan (1) Depressive disorder Status: Acute (2) Positive RPR test Status: Acute - Assessment and Plan (Free Text) Assessment: A/P- 71 year old female with depressive disorder admitted with worsening depression found to have + RPR. 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 in light of the UA and urine cx advise to repeat both UA and urine cx since pt. was on cipro as per med records but the e.coli UTI was Resistant to cipro. Thank you for allowing me to take part in the care of this patient. all above d/w .
[2017-07-03] MEDS ORDERED: Penicillin G Benzathine 2.4 Mill Unit/4 ml Syr IM SCH (16:30)
[2017-07-03] MEDS: Cefdinir 300 MG CAP PO SCH (17:03)
[2017-07-03] MEDS: Penicillin G Benzathine 2.4 Mill Unit/4 ml Syr IM SCH (17:23)
--- NOTE | 2017-07-03 18:06 | PCM.PYCHPN ---
Psychiatric Progress Note - Psychiatric Progress Note Patient seen today, length of contact: Patient evaluated, case discussed with team, chart reviewed Patient Chief Complaint: staff report pt is calmer, less tearful, seen more visibly in unit-taking per plan. pt reports doing better slept better, pt was seen by ander crawford abs/rpr + today Problems Identified/Issues Discussed: alteration in cognition alteration in self care Medical Problems: uti gram neg rods [id number] rods pt being followed by hospitalist jailene has been started Diagnostic Results: per psychiatry per medicine per nursing per high school social studies teacher per recreational therapy DSM 5 Symptoms Update: alteration in mood alteration in cognition Medication Change: No Medical Record Reviewed: Yes Consults ordered or reviewed: pt seen by infectious disease and dr ng today Mental Status Examination - Cognitive Function Orientation: Person, Place Memory: Impaired Attention: WNL Concentration: Poor Association: Loose Fund of Knowledge: Poor Decription of patient's judgement and insights: impaired - Mood Mood: Depressed - Affect Affect: Constricted - Speech Speech: Soft - Formal Thought Process Formal Thought Process: Paranoia, Loosening of associations - Suicidal Ideation Suicidal Ideation: No - Homicidal Ideation Homicidal Ideation: No Goal/Treatment Plan - Goal/Treatment Plan Need for Continued Stay: Remain at risks for inpatient hospitalization, Severe depression anxiety, Severe functional impairment Progress Toward Problem(s) and Goals/Treatment Plan: inpt milieu clinical visualization/vital signs per clinical status and per protocol adjust meds per status Increase risperdal to 1mg po hs-falls precautions pt seen by infectious disease today + fta abs/rpr + to be started on pcn per hospitalist urine culture results evaluated by infectious disease and discussed with hospitalist per notes prn access to irish speaking staff discharge planning in progress Estimated Date of D/C: 07/03/17 - Smoking Cessation Smoking Cessation Initiated: No Reason for not providing: pt defers need
[2017-07-03 18:27] LABS: SQUAMOUS EPITHIAL 4 /hpf (0-5); URINE BACTERIA MANY (<OCC); URINE BILIRUBIN NEGATIVE (NEGATIVE); URINE CLARITY TURBID (Clear); URINE COLOR YELLOW (YELLOW); URINE GLUCOSE (UA) NEG (Normal); URINE HYALINE CAST >20 /hpf (0-2); URINE LEUKOCYTE ESTERASE LARGE Leu/uL (Negative); URINE PROTEIN 30 mg/dL (NEGATIVE); URINE UROBILINOGEN 0.2-1.0 mg/dL (0.2-1.0)
[2017-07-03 18:28] LABS: URINE BLOOD SMALL (NEGATIVE)
[2017-07-04] MEDS: Cefdinir 300 MG CAP PO SCH ×2 (08:09→16:14)
--- NOTE | 2017-07-04 15:21 | PCM.PYCHPN ---
Psychiatric Progress Note - Psychiatric Progress Note Patient seen today, length of contact: Patient evaluated, case discussed with team, chart reviewed Patient Chief Complaint: pt is less anxious and tolerating meds well Pt is less delusional and less paranoid and denies side effects to risperdal. Medication Change: No Medical Record Reviewed: Yes Mental Status Examination - Cognitive Function Orientation: Person, Place Memory: Impaired Attention: WNL Concentration: Poor Association: Loose Fund of Knowledge: Poor - Mood Mood: Depressed - Affect Affect: Constricted - Speech Speech: Soft - Formal Thought Process Formal Thought Process: Paranoia, Loosening of associations - Suicidal Ideation Suicidal Ideation: No - Homicidal Ideation Homicidal Ideation: No Goal/Treatment Plan - Goal/Treatment Plan Need for Continued Stay: Remain at risks for inpatient hospitalization, Severe depression anxiety, Severe functional impairment Progress Toward Problem(s) and Goals/Treatment Plan: will continue to stabilize depression and anxiety and engage pt in therapy. Estimated Date of D/C: 07/03/17
[2017-07-05] MEDS: Cefdinir 300 MG CAP PO SCH ×2 (08:27→17:30)
[2017-07-06] MEDS: Cefdinir 300 MG CAP PO SCH ×2 (08:42→18:41)
--- NOTE | 2017-07-06 20:36 | PCM.PYCHPN ---
Psychiatric Progress Note - Psychiatric Progress Note Patient seen today, length of contact: Patient evaluated, case discussed with team, chart reviewed Patient Chief Complaint: pt seen in milieu talking to peers, reports that things alot about past experiences related to her perception that she could have done more but was not able. then shares related to famil. reports these thoughts are repetitive at times hears unknown voices talking about her. pt was tearful at times. of note pt's son's came to visit pt was able to visit was noted to smile. staff report pt has been adherent with rx.. pt denies side effects with rx.. Problems Identified/Issues Discussed: alteration in cognition alteration in self care Medical Problems: uti gram neg rods [id number] rods pt being followed by hospitalist jailene has been started Diagnostic Results: per psychiatry per medicine per nursing per elementary school social worker per recreational therapy DSM 5 Symptoms Update: alteration in mood and cognition Medication Change: No Medical Record Reviewed: Yes Consults ordered or reviewed: pt being followed hospitalist Mental Status Examination - Cognitive Function Orientation: Person, Place Memory: Impaired Attention: WNL Concentration: Poor Association: Loose Fund of Knowledge: Poor - Mood Mood: Depressed - Affect Affect: Constricted - Speech Speech: Soft - Formal Thought Process Formal Thought Process: Paranoia, Loosening of associations - Homicidal Ideation Homicidal Ideation: No Goal/Treatment Plan - Goal/Treatment Plan Need for Continued Stay: Remain at risks for inpatient hospitalization, Severe depression anxiety, Severe functional impairment Progress Toward Problem(s) and Goals/Treatment Plan: inpt milieu clinical visualization/vital signs per clinical status and per protocol adjust meds per status Increase risperdal to 1mg po hs-falls precautions pt seen by infectious disease today + fta abs/rpr + to be started on pcn per hospitalist urine culture results evaluated by infectious disease and discussed with hospitalist per notes prn access to croatian speaking staff discharge planning in progress Estimated Date of D/C: 07/10/17 - Smoking Cessation Smoking Cessation Initiated: No Reason for not providing: pt defers
[2017-07-07 17:07] LABS: SQUAMOUS EPITHIAL 1 /hpf (0-5); URINE BACTERIA RARE (<OCC); URINE BILIRUBIN NEGATIVE (NEGATIVE); URINE BLOOD NEGATIVE (NEGATIVE); URINE CLARITY SLIGHTY-CLOUDY (Clear); URINE COLOR YELLOW (YELLOW); URINE GLUCOSE (UA) 150 mg/dL (Normal); URINE LEUKOCYTE ESTERASE SMALL Leu/uL (Negative); URINE PROTEIN NEGATIVE (NEGATIVE); URINE UROBILINOGEN 0.2-1.0 mg/dL (0.2-1.0)
--- NOTE | 2017-07-07 17:42 | PCM.PYCHPN ---
Psychiatric Progress Note - Psychiatric Progress Note Patient seen today, length of contact: Patient evaluated, case discussed with team, chart reviewed Patient Chief Complaint: pt seen in room speaking with roommate, smiling talking in nauruan, when spoken to in private reports continues to be worried about being punished for admitted past acts although defers details. reports voices as being commentative. staff report pt is tearful at times. has been adherent with medications. Problems Identified/Issues Discussed: alteration in cognition alteration in self care Medical Problems: uti gram neg rods [id number] rods pt being followed by hospitalist jailene has been started Diagnostic Results: per psychiatry per medicine per nursing per psych social worker per recreational therapy DSM 5 Symptoms Update: alteration in mood alteration in cognition Medication Change: No Medical Record Reviewed: Yes Consults ordered or reviewed: pt being followed by hospitalist Mental Status Examination - Cognitive Function Orientation: Person, Place, Situation Memory: Impaired Attention: WNL Concentration: WNL Association: Loose Fund of Knowledge: Poor Decription of patient's judgement and insights: impaired - Mood Mood: Depressed - Affect Affect: Constricted - Speech Speech: Soft - Formal Thought Process Formal Thought Process: Paranoia, Loosening of associations - Suicidal Ideation Suicidal Ideation: No - Homicidal Ideation Homicidal Ideation: No Goal/Treatment Plan - Goal/Treatment Plan Need for Continued Stay: Remain at risks for inpatient hospitalization, Severe depression anxiety, Severe functional impairment Progress Toward Problem(s) and Goals/Treatment Plan: inpt milieu clinical visualization/vital signs per clinical status and per protocol adjust meds per status Increase risperdal to 1mg po hs-falls precautions pt seen by infectious disease today + fta abs/rpr + to be started on pcn per hospitalist will increase risperdal to 2mg hs, and stop am dose of 0.5mg urine culture results evaluated by infectious disease and discussed with hospitalist per notes prn access to nauruan speaking staff discharge planning in progress Estimated Date of D/C: 07/10/17 - Smoking Cessation Smoking Cessation Initiated: No Reason for not providing: pt deferred
--- NOTE | 2017-07-08 11:13 | PCM.PYCHPN ---
Psychiatric Progress Note - Psychiatric Progress Note Patient seen today, length of contact: Patient evaluated, case discussed with team, chart reviewed Patient Chief Complaint: "I'm sad." Problems Identified/Issues Discussed: Patient continues to be sad and labile. She continues to be fixated on feelings of irrational guilt. She continues to have poor insight into her mood lability. NO AH/VH/SI/HI. No adverse effects to medications reported. Medication Change: Yes (Restart Depakote) Medical Record Reviewed: Yes Consults ordered or reviewed: Medicine consult Mental Status Examination - Cognitive Function Orientation: Person, Place, Situation Memory: Impaired Attention: WNL Concentration: WNL Association: Loose Fund of Knowledge: Poor Decription of patient's judgement and insights: Poor I/J - Mood Mood: Depressed - Affect Affect: Constricted - Speech Speech: Soft - Formal Thought Process Formal Thought Process: Loosening of associations Psychotic Thoughts and Behaviors: Denies AH/VH - Suicidal Ideation Suicidal Ideation: No - Homicidal Ideation Homicidal Ideation: No Goal/Treatment Plan - Goal/Treatment Plan Need for Continued Stay: Remain at risks for inpatient hospitalization, Severe depression anxiety, Severe functional impairment Progress Toward Problem(s) and Goals/Treatment Plan: Dementia w/ Behavior Disturbance; Depressive Disorder NOS; Psychosis NOS -Individual and group therapy -Restart Depakote, continue Risperdal -Continue Remeron 15 mg PO HS -Continue Aricept 5 mg PO HS -Medicine, ID, and Psychology consults -Disposition planning Estimated Date of D/C: 07/13/17
[2017-07-08] MEDS: Divalproex 250 mg DR(BID formulation) PO SCH ×2 (13:20→16:36)
[2017-07-09] MEDS: Divalproex 250 mg DR(BID formulation) PO SCH ×2 (08:18→17:18)
--- NOTE | 2017-07-09 09:56 | PCM.PYCHPN ---
Psychiatric Progress Note - Psychiatric Progress Note Patient seen today, length of contact: Patient evaluated, case discussed with team, chart reviewed Patient Chief Complaint: "I'm sad." Problems Identified/Issues Discussed: Patient continues to be sad and labile w/ feelings of irrational guilt. She whispers at times instead of talking out loud but does not give a reason why. She continues to have poor insight into her mood lability. NO AH/VH/SI/HI. No adverse effects to medications reported. Medication Change: Yes (Titrate Depakote) Medical Record Reviewed: Yes Consults ordered or reviewed: Medicine consult Mental Status Examination - Cognitive Function Orientation: Person, Place, Situation Memory: Impaired Attention: WNL Concentration: WNL Association: Loose Fund of Knowledge: Poor Decription of patient's judgement and insights: Poor I/J - Mood Mood: Depressed - Affect Affect: Constricted - Speech Speech: Soft - Formal Thought Process Formal Thought Process: Loosening of associations Psychotic Thoughts and Behaviors: Denies AH/VH - Suicidal Ideation Suicidal Ideation: No - Homicidal Ideation Homicidal Ideation: No Goal/Treatment Plan - Goal/Treatment Plan Need for Continued Stay: Remain at risks for inpatient hospitalization, Severe depression anxiety, Severe functional impairment Progress Toward Problem(s) and Goals/Treatment Plan: Dementia w/ Behavior Disturbance; Depressive Disorder NOS; Psychosis NOS -Individual and group therapy -Continue to titrate Depakote, continue Risperdal -Continue Remeron 15 mg PO HS -Continue Aricept 5 mg PO HS -Medicine, ID, and Psychology consults -Disposition planning Estimated Date of D/C: 07/13/17
[2017-07-10] MEDS: Divalproex 250 mg DR(BID formulation) PO SCH ×2 (08:31→16:40)
--- NOTE | 2017-07-10 09:24 | PCM.PYCHPN ---
Psychiatric Progress Note - Psychiatric Progress Note Patient seen today, length of contact: Patient evaluated, case discussed with team, chart reviewed Patient Chief Complaint: "I'm sad." Problems Identified/Issues Discussed: Patient continues to be sad, tearful, and labile w/ feelings of irrational guilt. She whispers at times instead of talking out loud but does not give a reason why. She continues to have poor insight into her mood lability. NO AH/ VH/SI/HI. No adverse effects to medications reported. Medication Change: No Medical Record Reviewed: Yes Consults ordered or reviewed: Medicine consult, Psychology consult, ID consult Mental Status Examination - Cognitive Function Orientation: Person, Place, Situation Memory: Impaired Attention: WNL Concentration: WNL Association: Loose Fund of Knowledge: Poor Decription of patient's judgement and insights: Poor I/J - Mood Mood: Depressed - Affect Affect: Constricted - Speech Speech: Soft - Formal Thought Process Formal Thought Process: Loosening of associations Psychotic Thoughts and Behaviors: Denies AH/VH - Suicidal Ideation Suicidal Ideation: No - Homicidal Ideation Homicidal Ideation: No Goal/Treatment Plan - Goal/Treatment Plan Need for Continued Stay: Severe depression anxiety, Severe functional impairment Progress Toward Problem(s) and Goals/Treatment Plan: Dementia w/ Behavior Disturbance; Depressive Disorder NOS; Psychosis NOS -Individual and group therapy -Continue Depakote 250 mg PO BID, will check VPA level 07/12/17 -Continue Remeron 15 mg PO HS -Continue Aricept 5 mg PO HS -Medicine, ID, and Psychology consults -Disposition planning Estimated Date of D/C: 07/13/17
--- NOTE | 2017-07-10 12:40 | PCM.BM ---
Treatment Plan Problems - Problems identified on initial assessmt Hopelessness/Helplessness Date Initiated: 06/25/17 Time Initiated: 23:51 Assessment reference: NA Status: Active Treatment assets and liabiliti Patient Assests: cooperative, good support system, negotiates basic needs Patient Liabilities: relationship conflicts - Milieu Protocol Maintain good personal hygiene: daily Encourage regular showers, daily Remind patient to perform daily oral care, every shift Assist patient to perform ADL's Conduct patient checks and document Observation sheet: Q15 minutes Maintain personal safety: every shift Educate patient to report safety concerns to staff, every shift Monitor environment for contraband/sharps Medication safety: Monitor for expected outcome, potential side effects: every shift, Assess barriers to learning: every shift, Assess readiness for medication education: every shift Milieu Narrative: Dementia w/ Behavior Disturbance; Depressive Disorder NOS; Psychosis NOS -Individual and group therapy -Continue Depakote 250 mg PO BID, will check VPA level 07/12/17 -Continue Remeron 15 mg PO HS -Continue Aricept 5 mg PO HS -Medicine, ID, and Psychology consults -Disposition planning Family Contact Family involvement: Family/SO is involved Family contact: Patient agrees to contact Family contact name: Jennifer- daughter Family contacted how many times per week?: 2 Family contact comment: [phone] - Goals for Treatment Patient goals for treatment: Pt to be encouraged to attend activity and clinical groups 3-5x per week to identify at least 2 contributing factors to increased agitation, irritability, and aggression. Psycho-education to be provided to patient/family regarding benefits of medications and treatment adherence. Pt to be encouraged to participate in group milieu to develop effective coping skills to reduce aggression and reduce psychiatric hospitalizations. Coordinate discharge resource needs by providing referral for psychiatric treatment follow up in the community. Discharge/Continuing Care - Education Needs Education Needs: Family Medication, Family Diagnosis/Disease Process, Family Coping Skills, Family Placement options, Family Community resources, Family Activities of Daily Living, Family Uses of Medical Equipment, Family Health Practices/Safety, Family Personal Hygiene/Grooming, Family Aftercare Safety Plan , Patient Medication, Patient Diagnosis/Disease Process, Patient Coping Skills, Patient Placement options, Patient Community resources, Patient Activities of Daily Living, Patient Uses of Medical Equipment, Patient Health Practices/Safety , Patient Personal Hygiene/Grooming, Patient Aftercare Safety Plan - Discharge Discharge Criteria: Tolerates medication w/o severe side effects, Free of paranoid thoughts, Free of agitation, Normal sleep pattern, Ability to care for self, Reduction of target symptoms Discharge to:: Home, With Family - Additional Comments 06/26/17 15:04 Pt seen and discussed in team meeting. Reason for hospitalization reviewed and discussed. Pt unable to state reason for hospitalization at this time. Pt recalls having a "mental breakdown" but cannot state why or what caused it. Pt' s memory is poor and disoriented. When asked when she last visited [facility] pt cannot recall. Pt is a poor historian. Pt's medical and social issues reviewed. Pt's treatment plan reviewed. Treatment deo also reviewed with daughter following morning meeting with pt. SW will continue to follow case. - Treatment Team Participation Patient/Family/SO Statement: Dementia w/ Behavior Disturbance; Depressive Disorder NOS; Psychosis NOS -Individual and group therapy -Continue Depakote 250 mg PO BID, will check VPA level 07/12/17 -Continue Remeron 15 mg PO HS -Continue Aricept 5 mg PO HS -Medicine, ID, and Psychology consults -Disposition planning Discussed with Family/SO: Yes Was Patient/Family/SO present at Treatment Team Meeting: Yes Treatment Plan Review Family/SO/Caregiver participation: No Additional Comments: Pt seen and discussed in team meeting. Pt's progress and bx on the unit reviewed. Pt reported feeling "sad." When asked to provide further information and describe her feelings pt stated "different reasons." Pt presented with delayed response and with blank stare at times. Pt appeared to have difficulty formulating her sentences and describing what she is currently feeling. Fisher Weir inquired about the thoughts of wanting to hurt her grandchildren and/or anyone else in the house, pt stated "I'm not capable of hurting myself , never mind anyone else." Pt reported "it's just thoughts." Pt unable to provide team with further information regarding her "thoughts." Pt became tearful and reported she does not want to harm anyone. Fisher Weir inquired about her belief that she has HIV. Pt reported she does not recall telling her daughter that she has HIV. Pt reported having memory issues. Pt informed of her most recent dx of Dementia. Pt appeared to be surprised and stated "is it really?" Pt's medications reviewed and discussed. Pt has a tentative discharge for [facility], March 26th. Pt reported having no questions for the team. SW will continue to follow case. - Problem Hopelessness/Helplessness Date Initiated: 06/25/17 Time Initiated: 23:51 Progress toward outcomes: unchanged - Discharge / Continuing Care Discharge to:: Home, With Family Behavioral Health Services: Outpatient therapy, Home health care, Adult day care Health Needs: Follow up care/test, Nutritional, Medications/Rx, Educational
[2017-07-10] MEDS: Penicillin G Benzathine 2.4 Mill Unit/4 ml Syr IM SCH (16:30)
[2017-07-11] MEDS: Divalproex 250 mg DR(BID formulation) PO SCH ×2 (08:45→16:26)
--- NOTE | 2017-07-11 11:53 | PCM.PYCHPN ---
Psychiatric Progress Note - Psychiatric Progress Note Patient seen today, length of contact: Patient evaluated, case discussed with team, chart reviewed Patient Chief Complaint: pt seen in social area interacting with peers, staff report pt has been adherent with medications, appears to be less tearful, remains forgetful at times per staff, has recently been seen during team meeting on unit, discharge is tentatively for this coming thursday if pt continues to be stable. pt is scheduled to be followed up with [facility] as well as [facility]. pt has been followed by ID and has been treated for a UTI as well as syphyllis. per notes reports at times pt reportedly stated has at times being HIV positive although at times pt appears to have denied saying so. Problems Identified/Issues Discussed: alteration in cognition alteration in self care Medical Problems: pt being seen by hospitalist pt being seen by id pt seen by psychology-memory impaired newspaper publisher met with family pt cannot be alone information was provided for family to become poa by newspaper publisher Diagnostic Results: per psychiatry per medicine per nursing per social security assessor per recreational therapy per psychology per infectious disease DSM 5 Symptoms Update: alteration in cognition, alteration in self care, alteration in mood Medication Change: No Medical Record Reviewed: Yes Consults ordered or reviewed: hospitalist, infectious disease, nutrition, psychology Mental Status Examination - Cognitive Function Orientation: Person, Place, Situation Memory: Impaired Attention: WNL Concentration: WNL Association: Loose Fund of Knowledge: Poor Decription of patient's judgement and insights: impaired-cannot live alone at this time and agree with newspaper publisher note related to meeting with pt's family-pt should not be left alone with those who require adult supersion. - Mood Mood: Depressed - Affect Affect: Constricted - Speech Speech: Soft - Formal Thought Process Formal Thought Process: Paranoia, Loosening of associations - Suicidal Ideation Suicidal Ideation: No - Homicidal Ideation Homicidal Ideation: No Goal/Treatment Plan - Goal/Treatment Plan Need for Continued Stay: Severe depression anxiety, Severe functional impairment Progress Toward Problem(s) and Goals/Treatment Plan: inpt milieu clinical visualization/vital signs per clinical status and per protocol given pt has been diagnosed as being syphyllis positive and being treated with IM PCN and pt appears to be a poor historian will order lab for am for hepatitis panel as well as HIV antibody screen at pt is at higher risk given impaired cognitive function-pt will then be able to follow up at [facility] related to results-pt's cognitive status places her at higher risk for issues with follow up prn access to lithuanian speaking staff discharge planning in progress Estimated Date of D/C: 07/13/17 - Smoking Cessation Smoking Cessation Initiated: No Reason for not providing: pt defers
[2017-07-12 06:25] VITALS: RESP 18
[2017-07-12] MEDS: Divalproex 250 mg DR(BID formulation) PO SCH ×2 (08:40→16:22)
[2017-07-12 12:39] LABS: HEPATITIS C ANTIBODY NEGATIVE (NEGATIVE)
[2017-07-12 19:13] LABS: SQUAMOUS EPITHIAL 2 /hpf (0-5); URINE BILIRUBIN NEGATIVE (NEGATIVE); URINE BLOOD NEGATIVE (NEGATIVE); URINE CLARITY SLIGHTY-CLOUDY (Clear); URINE COLOR YELLOW (YELLOW); URINE GLUCOSE (UA) NEG (Normal); URINE LEUKOCYTE ESTERASE MOD Leu/uL (Negative); URINE PROTEIN NEGATIVE (NEGATIVE); URINE UROBILINOGEN 0.2-1.0 mg/dL (0.2-1.0)
--- NOTE | 2017-07-12 20:17 | PCM.PYCHPN ---
Psychiatric Progress Note - Psychiatric Progress Note Patient seen today, length of contact: Patient evaluated, case discussed with team, chart reviewed Patient Chief Complaint: tp seen art therapy room , demonstrating art work, reflects on past experiences- perceptions that she could have treated family members differently although defers specifics, tearful at times, speaks of worship being a support, does report feeling better less anxious, staff report is less anxious, valproic acid level 32 but is clinically improving will not increase to address level as clinically stabizing. staff report pt is adherent Problems Identified/Issues Discussed: alteration in cognition alteration in self care Medical Problems: pt being seen by hospitalist pt being seen by id pt seen by psychology-memory impaired scow hand met with family pt cannot be alone information was provided for family to become poa by scow hand Diagnostic Results: per psychiatry per medicine per nursing per social services per recreational therapy per psychology per infectious disease DSM 5 Symptoms Update: improving mood less labile cognition less paranoid Medication Change: No Medical Record Reviewed: Yes Consults ordered or reviewed: pt seen by hospitalist Mental Status Examination - Cognitive Function Orientation: Person, Place, Situation Memory: Impaired Attention: WNL Concentration: WNL Association: WNL Fund of Knowledge: WN Decription of patient's judgement and insights: impaired-cannot live alone at this time and agree with scow hand note related to meeting with pt's family-pt should not be left alone with those who require adult supersion. - Mood Mood: Depressed - Affect Affect: Constricted - Speech Speech: Soft - Formal Thought Process Psychotic Thoughts and Behaviors: less paranoia less labile - Suicidal Ideation Suicidal Ideation: No - Homicidal Ideation Homicidal Ideation: No Goal/Treatment Plan - Goal/Treatment Plan Need for Continued Stay: Severe depression anxiety, Severe functional impairment Progress Toward Problem(s) and Goals/Treatment Plan: inpt milieu clinical visualization/vital signs per clinical status and per protocol given pt has been diagnosed as being syphyllis positive and being treated with IM PCN and pt appears to be a poor historian will order lab for am for hepatitis panel as well as HIV antibody screen at pt is at higher risk given impaired cognitive function-pt will then be able to follow up at [facility] related to results-pt's cognitive status places her at higher risk for issues with follow up prn access to bengali speaking staff valproic acid level 32 clinically appears stabilizing will maintain current dose of valproic discharge planning in progress Estimated Date of D/C: 07/13/17 - Smoking Cessation Smoking Cessation Initiated: No Reason for not providing: defers
[2017-07-13 05:51] VITALS: TEMP 97.5
[2017-07-13 08:35] VITALS: BP 104/58; PULSE 99
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
[2017-07-13] MEDS: Divalproex 250 mg DR(BID formulation) PO SCH (13:01)
== END 2017-07-13 13:30 | disposition home or self-care (01) | DRG 884 ==
LOC: H.ER 14:36 → H.ERHOLD 20:32 → H.STEP 23:38
PROVIDERS: ADMIT Psychiatry & Neurology Psychiatry; ATTEND Psychiatry & Neurology Psychiatry
PROC: GZ51ZZZ Individual Psychotherapy, Behavioral (ICD-10-PCS; 2017-06-25)
PROC: 3E0234Z Introduction of Serum, Toxoid and Vaccine into Muscle, Percutaneous Approach (ICD-10-PCS; 2017-06-26)
PROC: GZHZZZZ Group Psychotherapy (ICD-10-PCS; principal; 2017-06-27)
DX: F03.91 Unspecified dementia, unspecified severity, with behavioral disturbance (principal); A53.0 Latent syphilis, unspecified as early or late; E87.5 Hyperkalemia; R45.851 Suicidal ideations; N39.0 Urinary tract infection, site not specified; F32.9 Major depressive disorder, single episode, unspecified; F41.9 Anxiety disorder, unspecified; I10 Essential (primary) hypertension; Z79.899 Other long term (current) drug therapy; Z87.440 Personal history of urinary (tract) infections; Z23 Encounter for immunization